=== PATIENT | male | born 1960 | race Caucasian/White ===

== ENCOUNTER 2017-07-18 12:00 | Inpatient (IN) | payer BC ==
[~2017-07-18] VITALS: Ht 177.8 cm; Wt 85.9 kg
[2017-07-18] VITALS (7 sets, daily range): BP systolic 103–135; BP diastolic 67–92
--- NOTE | ~2017-07-18 | DS ---
[place], [place] DISCHARGE SUMMARY NAME: MARGARITA ACEVES UNIT #: [id number] ROOM: 405 DOCTOR: ERIKA HUANG MD BIRTHDATE: [birth year] DOS: 07/19/2017 He was admitted to the hospital with chest pain and neck pain and at present, the patient is completely asymptomatic. He denies any problem and he has a past history of chronic neck pain, chronic back pain, diabetes mellitus, hypertension, hypercholesterolemia, hypothyroidism, tobacco abuse, and vitamin D deficiency and rest of his systemic review was normal and his repeat troponin level on 2 different occasions is normal. Troponin level is less than 0.05 on 2 different occasions. His CBC is fairly normal. Hemoglobin A1c 6. Basic metabolic profile is showing magnesium 2.3, otherwise, normal. Lipid profile is normal too. PHYSICAL EXAMINATION: VITAL SIGNS: His blood pressure is 198/70, pulse 75, respirations 20, temperature 97.6. CHEST: Clear. HEART: Regular. ABDOMEN: Soft. DISCHARGE INSTRUCTIONS: The patient will continue taking his medicine, which he was taking before. Along with that he is advised to take one baby aspirin daily and also has been advised to take nitroglycerin on a p.r.n. basis if he needs. He is also very strongly advised to stop smoking, to which the patient has agreed very nicely and I told him if he starts getting any chest pain, to give us a call immediately and also he will be scheduled as an outpatient for stress test. ERIKA HUANG MD CM:HANNY [id number] ERIKA HUANG MD 07/20/17 0118 interface
[2017-07-18] MEDS ORDERED: ZESTORETIC 20-1 EACH PO (12:11)
[2017-07-18] MEDS ORDERED: LISINOPRIL20 MG PO (12:12)
[2017-07-18] MEDS ORDERED: METOPROLOL TART50 M1 PO (12:12)
[2017-07-18] MEDS ORDERED: METFORMIN HCL1000 MG PO (12:13)
[2017-07-18] MEDS ORDERED: VITAMIN D-32000 UNI1 PO (12:13)
[2017-07-18] MEDS ORDERED: LEVOTHYROXINE75 MCG PO (12:13)
[2017-07-18] MEDS ORDERED: ATORVASTATIN CA10 M1 PO (12:13)
[2017-07-18 12:30] LABS: BASO % 0.2 % (0.0-1.0); HEMATOCRIT 48.3 % (42.0-52.0); HEMOGLOBIN 16.7 g/dl (14.0-18.0); LYMPH # 0.9 10*3/uL (1.3-4.4); LYMPH % 8.8 % (27.0-41.0); MEAN CELL VOLUME 95.1 fl (80.0-94.0); MEAN CORPUSCULAR HGB 32.9 pg (27.0-31.0); MEAN CORPUSCULAR HGB CONC 34.6 g/dl (33.0-37.0); MEAN PLATELET VOLUME 9.2 fl (9.6-12.3); MONO # 1.3 10*3/uL (0.1-1.0); MONO % 12.4 % (3.0-9.0); NEUT % 78.2 % (47.0-73.0); PLATELET COUNT AUTOMATED 194 10*3/uL (130-400); RED BLOOD COUNT 5.08 10*6/uL (4.50-5.90); RED CELL DISTRI WIDTH 13.3 % (0-14.5); WHITE BLOOD COUNT 10.2 10*3/uL (4.8-10.8)
[2017-07-18 12:38] LABS: ACT PARTIAL THROMBO TIME 22.6 SECONDS (20.8-31.5)
[2017-07-18 12:48] LABS: ALBUMIN 4.2 gm/dl (3.1-4.5); ALKALINE PHOSPHATASE 56 U/L (45-117); BUN 12 mg/dl (7-24); CHLORIDE 100 mmol/L (98-107); CREATININE 0.96 mg/dL (0.70-1.30); POTASSIUM 4.4 mmol/L (3.5-5.1); SGOT/AST 14 IU/L (3-35); SGPT/ALT 31 U/L (12-78); SODIUM 138 mmol/L (136-145); TOTAL PROTEIN 8.5 gm/dL (6.4-8.2)
[2017-07-18 12:50] LABS: TROPONIN I < 0.015 ng/ml (<0.045)
[2017-07-19] VITALS: BP 107/70
[2017-07-19 07:42] LABS: BASO % 0.3 % (0.0-1.0); EOS # 0.1 10*3/uL (0.0-0.4); EOS % 0.5 % (1.0-4.0); HEMATOCRIT 46.6 % (42.0-52.0); HEMOGLOBIN 15.7 g/dl (14.0-18.0); LYMPH # 1.7 10*3/uL (1.3-4.4); LYMPH % 15.2 % (27.0-41.0); MEAN CELL VOLUME 96.5 fl (80.0-94.0); MEAN CORPUSCULAR HGB 32.5 pg (27.0-31.0); MEAN CORPUSCULAR HGB CONC 33.7 g/dl (33.0-37.0); MEAN PLATELET VOLUME 9.6 fl (9.6-12.3); MONO # 1.2 10*3/uL (0.1-1.0); MONO % 11.1 % (3.0-9.0); NEUT % 72.4 % (47.0-73.0); PLATELET COUNT AUTOMATED 206 10*3/uL (130-400); RED BLOOD COUNT 4.83 10*6/uL (4.50-5.90); RED CELL DISTRI WIDTH 13.7 % (0-14.5)
[2017-07-19 08:00] VITALS: BP 119/73
[2017-07-19 08:26] LABS: BUN 16 mg/dl (7-24); CHLORIDE 100 mmol/L (98-107); POTASSIUM 4.5 mmol/L (3.5-5.1); SODIUM 139 mmol/L (136-145)
[2017-07-19 08:38] LABS: CHOLESTEROL 151 mg/dL (<200); CREATININE 1.01 mg/dL (0.70-1.30); HDL CHOLESTEROL 72 mg/dl (40-60); LDL CHOLESTEROL 65 mg/dL (9-159); PHOSPHOROUS 3.4 mg/dL (2.5-4.9); TRIGLYCERIDES 69 mg/dl (<150); VLDL CHOLESTEROL 14 mg/dL (6-40)
[2017-07-19 08:58] LABS: VITAMIN D, 25-HYDROXY 33.9 ng/mL (30-100)
[2017-07-19 12:00] VITALS: BP 98/70
[2017-07-19] MEDS ORDERED: ASPIR LOW81 MG PO (14:09)
[2017-07-19] MEDS ORDERED: NITROSTAT0.4 MG SL (14:17)
== END 2017-07-19 14:59 | disposition home or self-care (01) | DRG 313 ==
LOC: ED 12:00 → 4E 13:35 → EDHOLD 13:35 → 4E 13:48
PROVIDERS: Internal Medicine; Nurse Practitioner Family
DX: R07.9 Chest pain, unspecified (principal); E11.65 Type 2 diabetes mellitus with hyperglycemia; E78.5 Hyperlipidemia, unspecified; E03.9 Hypothyroidism, unspecified; I10 Essential (primary) hypertension; G89.29 Other chronic pain; M54.9 Dorsalgia, unspecified; M54.2 Cervicalgia; E78.00 Pure hypercholesterolemia, unspecified; E55.9 Vitamin D deficiency, unspecified; D75.89 Other specified diseases of blood and blood-forming organs; D72.810 Lymphocytopenia; D72.821 Monocytosis (symptomatic); Z90.10 Acquired absence of unspecified breast and nipple; Z82.49 Family history of ischemic heart disease and other diseases of the circulatory system; Z79.82 Long term (current) use of aspirin; Z71.6 Tobacco abuse counseling; Z79.84 Long term (current) use of oral hypoglycemic drugs

== ENCOUNTER → 2017-07-25 | Outpatient (CLI) | payer BC ==
[~2017-07-25] MED LIST: ASPIR LOW81 MG PO; ATORVASTATIN CA10 M1 PO; LEVOTHYROXINE75 MCG PO; LISINOPRIL20 MG PO; METFORMIN HCL1000 MG PO; METOPROLOL TART50 M1 PO; NITROSTAT0.4 MG SL; VITAMIN D-32000 UNI1 PO; ZESTORETIC 20-1 EACH PO
== END | disposition home or self-care (01) ==
LOC: CARD 02:11
DX: R07.2 Precordial pain (principal)